=== PATIENT | male | born 1980 | race African-American/Black ===

== ENCOUNTER 2019-10-17 08:21 | Emergency (ER) | payer SELFPAY ==
[2019-10-17 08:22] VITALS: BP 125/78; PULSE 85; RESP 18; TEMP 36.7; O2SAT 98; BMI 25.0
--- NOTE | 2019-10-17 08:54 | [facility].EDUROGM ---
ED Disposition Clinical Impression: STD exposure, Urethritis Disposition: Home, Self-Care Condition on Discharge: Good Instructions: DI for Gonorrhea, DI for Chlamydia, DI for Urethritis Additional Instructions: Follow-up with the health department as soon as they are open for further STD evaluation. Take your sexual partner with you to the health department. Return to the emergency department immediately if symptoms are worse. Refrain from sexual activity until symptoms have resolved. If you do not refrain from sexual activity at least use a condom until you are free of infection. Time of Disposition: 09:06 - Critical Care Critical Care Time: No Attestation: On , the high probability of a clinically significant, sudden or life threatening deterioration of the following system(s) required my full and direct attention, intervention and personal management. The time I documented below is in addition to time spent performing reported procedures but includes the following listed in this critical care notation. Medical Decision Making - Medical Records Medical records reviewed: Yes: I reviewed the patient's medical records. - Chauncey Inquiry Pt receiving controlled substance: No Vital Signs: 10/17/19 08:22 Temperature 98.1 F Temperature Source Oral Pulse Rate [Right] 85 Respiratory Rate 18 Blood Pressure [Right Arm] 125/78 Blood Pressure Mean [Right Arm] 93 02 Sat by Pulse Oximetry 98 Oxygen Delivery Method Room Air Male Urogenital HPI - General Chief complaint: Urogenital-Male Stated complaint: thick white bladder discharge,painful Time Seen by Provider: 10/17/19 08:30 Mode of Arrival: Ambulatory Limitations: No Limitations Description of Symptoms (Recalled from ER Triage Doc. by RN): C/O pain in his penis and thick white discharge. - History of Present Illness HPI Narrative: 39-year old -Citizen Of [place] male presents to the emergency department with his sexual partner. He has complaints of mild dysuria and a whitish-yellow discharge from the penis. His partner is asymptomatic. MD Complaint: penile discharge Onset (ago): day(s) (1) Duration: constant Location: penis Severity: mild Relieving factors: none Exacerbating factors: none Reports: denies other symptoms - Related Data Sexually active: Yes Allergies Allergy/AdvReac Type Severity Reaction Status Date / Time No Known Allergies Allergy Verified 10/17/19 09:06 [facility] History - Hepatitis A Screen Drug use history?: No High risk sexual behaviors?: No History of sexually transmitted infection?: No Currently employed?: No Childcare worker?: No Do you have indoor plumbing?: Yes Do you have electricity?: Yes Attestation statement:: This patient has been screened for Hepatitis A risk factors. I have reviewed the patient's past medical history: Yes ROS Obtained: Yes Systems reviewed as appropriate & no additional complaints - Constitutional Constitutional: Reports system reviewed and no additional complaints, except as docu - Eyes Eyes: Reports system reviewed and no additional complaints, except as docu - ENT Ears, Nose, Mouth, and Throat: Reports system reviewed and no additional complaints, except as docu - Cardiovascular Cardiovascular: Reports system reviewed and no additional complaints, except as docu - Respiratory Respiratory: Yes system reviewed and no additional complaints, except as docu - Gastrointestinal Gastrointestingal: Reports: system reviewed and no additional complaints, except as docu - Genitourinary Male Genitourinary: Reports system reviewed and no additional complaints, except as docu, Reports penile discharge - Musculoskeletal Musculoskeletal: Reports system reviewed and no additional complaints, except as docu - Integumentary/Breasts Skin/Breast: Reports system reviewed and no additional complaints, except as docu - Neurologic Neurologic: Reports system reviewed and no additional complaints
[2019-10-17 09:15] VITALS: BP 131/89; PULSE 73; RESP 16; TEMP 37; O2SAT 99
== END 2019-10-17 09:29 | disposition home or self-care (01) ==
PROVIDERS: Emergency Provider Emergency Medicine
DX: N34.2 Other urethritis (principal); Z20.2 Contact with and (suspected) exposure to infections with a predominantly sexual mode of transmission
CPT/HCPCS: 96372; 99281